=== PATIENT | male | born 1990 | race Caucasian/White ===

== ENCOUNTER 2023-10-26 18:16 | Emergency (ER) | payer OTHER, BC ==
[2023-10-26] MEDS ORDERED: TORADOL IM STA (19:38)
[2023-10-26 19:44] VITALS: BP 129/83; PULSE 93; RESP 18; TEMP 98.2; O2SAT 95
[2023-10-26] MEDS ORDERED: TORADOL ONE (19:44)
[2023-10-26 20:49] VITALS: BP 139/85; PULSE 90; RESP 18; TEMP 98.2; O2SAT 95
== END 2023-10-26 20:56 | disposition home or self-care (01) ==
LOC: ER 18:16
DX: S10.93XA Contusion of unspecified part of neck, initial encounter (principal); S20.229A Contusion of unspecified back wall of thorax, initial encounter; S09.90XA Unspecified injury of head, initial encounter; V89.2XXA Person injured in unspecified motor-vehicle accident, traffic, initial encounter; Y93.89 Activity, other specified; Y92.89 Other specified places as the place of occurrence of the external cause; Y99.8 Other external cause status
CPT/HCPCS: 99285; 70450; 96372; 72125; 72128; J1885